=== PATIENT | male | born 1980 | race Two or more races ===

== ENCOUNTER → 2018-06-04 | Outpatient (CLI) | payer OTHER ==
[2018-06-06 07:15] LABS: RUBEOLA (MEASLES) IGG <25.0 AU/mL (Immune >29.9)
== END | disposition home or self-care (01) ==
LOC: EMPHLTH 08:47
PROVIDERS: ATTEND Internal Medicine
DX: Z02.1 Encounter for pre-employment examination (principal)
CPT/HCPCS: 86706; 86735; 86762; 86765; 86787

== ENCOUNTER → 2018-10-02 | Outpatient (CLI) | payer OTHER | END | disposition home or self-care (01) | LOC: EMPHLTH 10:04 | PROVIDERS: ATTEND Internal Medicine | DX: Z02.1 Encounter for pre-employment examination (principal) | CPT/HCPCS: 86735; 86762; 86765; 86787 ==

== ENCOUNTER 2018-10-03 10:01 | Emergency (ER) | payer SELFPAY ==
[~2018-10-03] VITALS: Ht 185.4 cm; Wt 111.4 kg
[2018-10-03] MEDS ORDERED: DEXAMETHASONE SOD PHOS 4 MG/ML 5 ML VIAL IM ONE (10:30)
[2018-10-03 11:55] VITALS: BP 131/81
== END 2018-10-03 12:00 | disposition home or self-care (01) ==
LOC: EMS 10:01
DX: J02.8 Acute pharyngitis due to other specified organisms (principal); B97.89 Other viral agents as the cause of diseases classified elsewhere
CPT/HCPCS: 71045; 87430; 96372; 99284; J1100